=== PATIENT | female | born 1965 | race Caucasian/White ===

== ENCOUNTER 2018-09-22 16:38 | Emergency (ER) | payer OTHER ==
[~2018-09-22] VITALS: Ht 144.8 cm; Wt 86.2 kg
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
[2018-09-22 17:26] LABS: BASOPHILS # (AUTO) 0.1 /CMM (0.0-0.2); BASOPHILS % (AUTO) 0.5 % (0.0-2.0); EOSINOPHILS % (AUTO) 1.7 % (0.0-6.0); HEMATOCRIT 40 % (33-45); HEMOGLOBIN 13.6 g/dL (11.5-14.8); LYMPHOCYTES # (AUTO) 2.5 /CMM (0.8-4.8); LYMPHOCYTES % (AUTO) 17.6 % (20.0-44.0); MEAN CORPUSCULAR HGB CONC 34 g/dl (31.0-36.0); MEAN CORPUSCULAR VOLUME 86 fL (82-100); MONOCYTES # (AUTO) 0.7 /CMM (0.1-1.30); NEUTROPHILS # (AUTO) 10.6 /CMM (1.8-8.9); NEUTROPHILS % (AUTO) 75.2 % (43.0-81.0); PLATELET COUNT (AUTO) 338 /CMM (150-450); RED BLOOD CELL COUNT(AUTO) 4.65 MIL/uL (4.0-5.2); WHITE BLOOD COUNT (AUTO) 14.1 K/uL (4.3-11.0)
[2018-09-22] MEDS ORDERED: ONDANSETRON HCL/PF 4 MG/2 ML VIAL IVP ONE (17:30)
[2018-09-22] MEDS ORDERED: MORPHINE SULFATE INJ 2 MG/ML DISP.SYRIN IV ONE ×2 (17:30→21:30)
[2018-09-22] MEDS ORDERED: IV NS 0.9% 1,000 ML BAG IV ONE (17:30)
[2018-09-22 17:38] LABS: CALCIUM, SERUM 9.2 mg/dL (8.5-10.1); CREATININE 0.7 mg/dL (0.6-1.3); POTASSIUM 4.2 mmol/L (3.5-5.1)
[2018-09-22 17:44] LABS: ALBUMIN 4.1 g/dL (3.4-5.0); BILIRUBIN,DIRECT 0.1 mg/dL (0.0-0.2); BILIRUBIN,TOTAL 0.5 mg/dL (0.2-1.0); TOTAL PROTEIN, SERUM 7.9 g/dL (6.4-8.2)
[2018-09-22] MEDS ORDERED: ONDANSETRON HCL/PF 4 MG/2 ML VIAL ONE (17:55)
[2018-09-22] MEDS ORDERED: MORPHINE SULFATE INJ 4 MG/ML DISP.SYRIN ONE ×2 (17:55→21:26)
[2018-09-22] MEDS ORDERED: IV NS 0.9% 250 ML IV ONE (17:56)
[2018-09-22] MEDS ORDERED: IOHEXOL-300 100 ML VIAL IV ONE (17:56)
[2018-09-22] MEDS ORDERED: CT SWABBABLE VALVE TRANS SET 1 EA INFUS.SET MC ONE (17:56)
--- NOTE | 2018-09-22 18:00 | NUR ---
PT WHEELED TO CT SCAN VIA [employer].
--- NOTE | 2018-09-22 18:46 | NUR ---
PT AMBULATED TO THE BATHROOM WITH A SLOW STEADY GAIT.
--- NOTE | 2018-09-22 18:49 | NUR ---
CALLED [facility] RE: CT READ.
--- NOTE | 2018-09-22 18:51 | NUR ---
PT RETURNED FROM THE BATHROOM.
--- NOTE | 2018-09-22 19:26 | NUR ---
REPORT GIVEN TO MADELYN ADAM FOR [facility].
[2018-09-22] MEDS ORDERED: TDAP [DIPH/PERTUSSIS/TET] 0.5 ML VIAL IM ONE ×2 (20:00→20:14)
[2018-09-22 20:09] VITALS: BP 122/88
--- NOTE | 2018-09-22 20:21 | NUR ---
RADIOLOGY AT [facility] FOR XRAY
--- NOTE | 2018-09-22 20:27 | NUR ---
[facility] AT BEDSIDE FOR EKG
--- NOTE | 2018-09-22 20:37 | NUR ---
CALLED [facility], SPOKE WITH TRAUMA SURGEON DR.RICHARD HOUSTON, TRANSFERRED CALL TO ISMAEL SIFUENTES NP.
--- NOTE | 2018-09-22 20:42 | NUR ---
CALLED [facility] ER, SPOKE WITH QUINN, INFORMED HER OF PT, SHE REQUESTED NURSE TO GIVE REPORT TO ER NURSE AT [phone].
--- NOTE | 2018-09-22 20:49 | NUR ---
CALLED [facility] FOR TRANSPORT TO [facility], ETA 90 MIN, TRIP#[id number]
--- NOTE | 2018-09-22 21:48 | NUR ---
REPORT GIVEN TO MADELYN MCCOY AT [facility] FOR [facility]
--- NOTE | 2018-09-22 22:54 | NUR ---
REPORT GIVEN TO [facility] FOR [facility]. [facility]. NO S/S OF ACUTE DISTRESS NOTED UPON TRANSPORT.
== END 2018-09-22 23:18 | disposition short-term general hospital (02) ==
LOC: ER 16:46
DX: S22.31XA Fracture of one rib, right side, initial encounter for closed fracture (principal); S22.20XA Unspecified fracture of sternum, initial encounter for closed fracture; S30.1XXA Contusion of abdominal wall, initial encounter; S40.812A Abrasion of left upper arm, initial encounter; D72.829 Elevated white blood cell count, unspecified; V49.49XA Driver injured in collision with other motor vehicles in traffic accident, initial encounter; Y93.89 Activity, other specified; Y92.413 State road as the place of occurrence of the external cause; Y99.8 Other external cause status
CPT/HCPCS: 36415; 71260; 73090; 74177; 80048; 80076; 83690; 84484; 85025; 85730; 90471; 90715; 93005; 96374; 96375; 96376; 99285; J2270 ×2; J2405; J7030; J7050; Q9967